=== PATIENT | female | born 1940 | race Caucasian/White ===

== ENCOUNTER 2018-10-04 12:35 | Inpatient (IN) | payer MEDICARE ==
[~2018-10-04] VITALS: Ht 157.5 cm; Wt 73.9 kg
[2018-10-04] MEDS ORDERED: OSEL75CA17 PO (12:44)
[2018-10-04] MEDS ORDERED: HYDR12.529 PO (12:44)
[2018-10-04] MEDS ORDERED: AMLO5TAB88 PO (12:44)
[2018-10-04] MEDS ORDERED: CIPR-263 PO (12:44)
[2018-10-04] MEDS ORDERED: LEVO88TA2 PO (12:44)
[2018-10-04] MEDS ORDERED: SODIUM CHLORIDE 0.9% 1,000 ML IV ONE ×2 (12:52→16:15)
[2018-10-04] MEDS ORDERED: ONDANSETRON HCL 4MG/2ML INJ IV ONE (13:00)
[2018-10-04 13:25] LABS: HEMATOCRIT. 39.1 % (36.0-48.0); HEMOGLOBIN. 12.9 g/dL (12.0-16.0); MEAN CORPUSCULAR HEMOGLOBIN 29.1 pg (28.0-32.0); MEAN PLATELET VOLUME 8.1 fl (7.4-10.4); PLATELET 494 x1000/uL (130-400); RED BLOOD CELL COUNT 4.45 mill/uL (4.2-5.4); RED CELL DISTRIBUTION WIDTH 14.7 % (11.6-14.6)
[2018-10-04 13:31] LABS: CHLORIDE 98 mEq/L (98-107)
[2018-10-04 13:48] LABS: PLATELET ESTIMATE INCREASED
[2018-10-04 14:43] LABS: CLARITY URINE CLOUDY (CLEAR); COLOR URINE YELLOW (YELLOW); KETONES URINE NEGATIVE (NEGATIVE); LEUKOCYTE ESTERASE URINE NEGATIVE (NEGATIVE); NITRITE URINE NEGATIVE (NEGATIVE); OCCULT BLOOD URINE NEGATIVE (NEGATIVE); PROTEIN URINE NEGATIVE (NEGATIVE); UROBILINOGEN URINE 0.2 E.U./dL (0.2-1.0)
[2018-10-04 18:42] VITALS: BP 99/51
[2018-10-04 18:49] VITALS: BP 99/51
[2018-10-04] MEDS: SODIUM CHLORIDE 0.9% 1,000 ML IV SCH (19:07)
[2018-10-04] MEDS ORDERED: CLONIDINE 0.1MG TABLET PO PRN (19:15)
[2018-10-04] MEDS ORDERED: ONDANSETRON HCL 4MG/2ML INJ IV PRN (19:15)
[2018-10-04] MEDS ORDERED: ACETAMINOPHEN 650MG/20.3ML UDC GT PRN (19:15)
[2018-10-04] MEDS ORDERED: MAGNESIUM/ALUMINUM HYDROXIDE/SIMETHICONE 30ML UDC PO PRN (19:15)
[2018-10-04 20:00] VITALS: BP 100/50
[2018-10-04] MEDS ORDERED: ENOXAPARIN 30MG/0.3ML SYR SUBCUT SCH (20:00)
[2018-10-05] VITALS: BP 93/50
[2018-10-05 04:00] VITALS: BP 90/43
[2018-10-05 06:27] LABS: HEMATOCRIT. 34.9 % (36.0-48.0); HEMOGLOBIN. 11.3 g/dL (12.0-16.0); MEAN CORPUSCULAR HEMOGLOBIN 28.6 pg (28.0-32.0); MEAN CORPUSCULAR VOLUME 88.1 fL (81.0-99.0); MEAN PLATELET VOLUME 8.5 fl (7.4-10.4); PLATELET 422 x1000/uL (130-400); RED BLOOD CELL COUNT 3.96 mill/uL (4.2-5.4); RED CELL DISTRIBUTION WIDTH 14.4 % (11.6-14.6)
[2018-10-05 06:44] LABS: PHOSPHORUS 3.6 mg/dL (2.5-4.9)
[2018-10-05 08:00] VITALS: BP 104/57
[2018-10-05] MEDS: SODIUM CHLORIDE 0.9% 1,000 ML IV SCH ×2 (08:37→19:00)
[2018-10-05] MEDS ORDERED: INFLUENZA VIRUS VACCINE(AFLURIA) 0.5ML SYR IM ONE (10:00)
[2018-10-05 12:00] VITALS: BP 102/55
[2018-10-05 13:53] LABS: PLATELET ESTIMATE INCREASED
[2018-10-05] MEDS ORDERED: IPRATROPIUM/ALBUTEROL 0.5-3(2.5)MG/3ML NEB HHN PRN (14:15)
[2018-10-05 16:00] VITALS: BP 107/60
[2018-10-05] MEDS: AZITHROMYCIN 500 MG TABLET PO SCH (16:16)
[2018-10-05] MEDS: PANTOPRAZOLE SODIUM 40 MG/VIAL IV SCH (16:18)
[2018-10-05] MEDS: CEFTRIAXONE 1 G PREMIX 50 ML IV SCH (16:59)
[2018-10-05 20:00] VITALS: BP 106/61
[2018-10-05] MEDS: IPRATROPIUM/ALBUTEROL 0.5-3(2.5)MG/3ML NEB HHN SCH (20:35)
[2018-10-05] MEDS: ENOXAPARIN 40MG/0.4ML SYR SUBCUT SCH (22:02)
[2018-10-05] MEDS: GUAIFENESIN 600MG ER TABLET PO SCH (22:03)
[2018-10-05] MEDS: FLUTICASONE PROPIONATE 50MCG/SPRAY BOTTLE BOTHNSTRLS SCH (22:03)
[2018-10-06] VITALS: BP 103/60
[2018-10-06] MEDS: IPRATROPIUM/ALBUTEROL 0.5-3(2.5)MG/3ML NEB HHN SCH ×4 (01:26→20:45)
[2018-10-06 04:00] VITALS: BP 104/59
[2018-10-06] MEDS: SODIUM CHLORIDE 0.9% 1,000 ML IV SCH ×2 (05:53→05:56)
[2018-10-06 08:00] VITALS: BP 114/58
[2018-10-06] MEDS: AZITHROMYCIN 500 MG TABLET PO SCH (08:23)
[2018-10-06] MEDS: FLUTICASONE PROPIONATE 50MCG/SPRAY BOTTLE BOTHNSTRLS SCH ×2 (08:23→21:21)
[2018-10-06] MEDS: GUAIFENESIN 600MG ER TABLET PO SCH ×2 (08:23→21:21)
[2018-10-06] MEDS: PANTOPRAZOLE SODIUM 40 MG/VIAL IV SCH (08:26)
[2018-10-06 09:37] LABS: HEMATOCRIT. 34.7 % (36.0-48.0); HEMOGLOBIN. 11.2 g/dL (12.0-16.0); MEAN CORPUSCULAR HEMOGLOBIN 28.6 pg (28.0-32.0); MEAN CORPUSCULAR VOLUME 88.5 fL (81.0-99.0); MEAN PLATELET VOLUME 8.5 fl (7.4-10.4); PLATELET 424 x1000/uL (130-400); RED BLOOD CELL COUNT 3.92 mill/uL (4.2-5.4); RED CELL DISTRIBUTION WIDTH 14.3 % (11.6-14.6)
[2018-10-06 10:23] LABS: PLATELET ESTIMATE SLIGHTLY INCREASED
[2018-10-06 12:00] VITALS: BP 108/60
[2018-10-06] MEDS: DOCUSATE SODIUM 100MG CAPSULE PO PRN ×2 (13:48→21:29)
[2018-10-06] MEDS: LEVOTHYROXINE SODIUM 88MCG TABLET PO SCH (14:55)
[2018-10-06 16:00] VITALS: BP 112/59
[2018-10-06] MEDS: CEFTRIAXONE 1 G PREMIX 50 ML IV SCH (16:10)
[2018-10-06] MEDS ORDERED: MAGNESIUM CITRATE 300ML SOLUTION PO NR (18:00)
[2018-10-06 20:00] VITALS: BP 129/63
[2018-10-06] MEDS: ENOXAPARIN 40MG/0.4ML SYR SUBCUT SCH (21:00)
[2018-10-07] MEDS: IPRATROPIUM/ALBUTEROL 0.5-3(2.5)MG/3ML NEB HHN SCH ×2 (02:11→07:18)
[2018-10-07 04:00] VITALS: BP 117/65
[2018-10-07] MEDS ORDERED: PANTOPRAZOLE 40MG DR TABLET PO SCH (07:40)
[2018-10-07 08:00] VITALS: BP 122/60
[2018-10-07] MEDS ORDERED: FAMOTIDINE 20MG TABLET PO SCH (09:00)
[2018-10-07] MEDS: LEVOTHYROXINE SODIUM 88MCG TABLET PO SCH (09:11)
[2018-10-07] MEDS: AZITHROMYCIN 500 MG TABLET PO SCH (09:11)
[2018-10-07] MEDS: GUAIFENESIN 600MG ER TABLET PO SCH (09:11)
[2018-10-07] MEDS: FLUTICASONE PROPIONATE 50MCG/SPRAY BOTTLE BOTHNSTRLS SCH (09:12)
[2018-10-07 11:19] VITALS: BP 122/60
== END 2018-10-07 12:58 | disposition home or self-care (01) | DRG 682 ==
LOC: ER 13:41 → 7WST 16:23 → EDBEDREQ 16:27 → ENRESERV 16:39
PROVIDERS: ADMIT Specialist; ATTEND Specialist
DX: N17.9 Acute kidney failure, unspecified (principal); J96.00 Acute respiratory failure, unspecified whether with hypoxia or hypercapnia; J98.11 Atelectasis; R65.10 Systemic inflammatory response syndrome (SIRS) of non-infectious origin without acute organ dysfunction; E44.0 Moderate protein-calorie malnutrition; E86.0 Dehydration; I10 Essential (primary) hypertension; E03.9 Hypothyroidism, unspecified; E86.1 Hypovolemia; J00 Acute nasopharyngitis [common cold]; K44.9 Diaphragmatic hernia without obstruction or gangrene; K59.00 Constipation, unspecified; Z96.651 Presence of right artificial knee joint; Z90.710 Acquired absence of both cervix and uterus; Z79.899 Other long term (current) drug therapy; Z80.0 Family history of malignant neoplasm of digestive organs
CPT/HCPCS: 36415; 71045; 80048; 83735; 83880; 84100; 84484; 90686; 93005; 94640; 96361; 96374; 97162; 97165; 99285; C9113; J0696; J1650; J2405; J7030; J7620